=== PATIENT | male | born 1980 | race Caucasian/White ===

== ENCOUNTER 2018-10-23 20:09 | Emergency (ER) | payer SELFPAY ==
[~2018-10-23] VITALS: Ht 175.3 cm; Wt 87.5 kg
[2018-10-23 20:30] VITALS: Ht 175.3 cm; Wt 87.5 kg
[2018-10-23 21:54] VITALS: BP 131/84
== END 2018-10-23 21:54 | disposition home or self-care (01) ==
LOC: ED 20:09
DX: S71.111A Laceration without foreign body, right thigh, initial encounter (principal); W23.0XXA Caught, crushed, jammed, or pinched between moving objects, initial encounter; Y93.89 Activity, other specified; Y92.89 Other specified places as the place of occurrence of the external cause; Y99.8 Other external cause status
CPT/HCPCS: 90715; J2001

== ENCOUNTER 2018-11-01 13:41 | Emergency (ER) | payer SELFPAY ==
[~2018-11-01] VITALS: Ht 175.3 cm; Wt 87.5 kg
[2018-11-01 14:02] VITALS: BP 141/97; Ht 175.3 cm; Wt 87.5 kg
== END 2018-11-01 14:45 | disposition home or self-care (01) ==
LOC: ED 13:41
DX: S71.111D Laceration without foreign body, right thigh, subsequent encounter (principal); R03.0 Elevated blood-pressure reading, without diagnosis of hypertension; W22.8XXD Striking against or struck by other objects, subsequent encounter